=== PATIENT | female | born 1960 | race Caucasian/White ===

== ENCOUNTER 2019-08-23 11:02 | Emergency (ER) | payer OTHER ==
[2019-08-23] MEDS ORDERED: LIDOCAINE 1% W/EPI 1:100,000 MDV 20 ML VIAL ONE (12:16)
--- NOTE | 2019-08-23 12:42 | ER ---
Nurse's Notes [facility] Name: Emerita Tang Age: 59 yrs Sex: Female : 1960 Arrival Date: 08/23/2019 Time: 11:04 Bed 7 Private MD: Diagnosis: Laceration without foreign body of lower leg-left Presentation: 08/22 11:11 Chief complaint: Patient states: laceration to L pickett occurred 15 minutes ago. Pt ss reports she was taking down a metal shed. No active bleeding noted at this time. Pressure dressing placed prior to arrival. Coronavirus screen: Proceed with normal triage. Patient denies a cough. Patient denies shortness of breath or difficulty breathing. Patient denies measured and/or subjective temperature greater than 100.4F prior to today's visit. Patient denies travel on a cruise ship or to a country the [facility] currently lists as an affected area. Patient denies contact with known and/or suspected case of COVID-19. Ebola Screen: Patient denies exposure to infectious person. Patient denies travel to an Ebola-affected area in the 21 days before illness onset. Complicating Factors: There are no complicating factors for this patient. Initial Sepsis Screen: Does the patient meet any 2 criteria? No. Patient's initial sepsis screen is negative. Does the patient have a suspected source of infection? No. Patient's initial sepsis screen is negative. Risk Assessment: Do you want to hurt yourself or someone else? Patient reports no desire to harm self or others. Onset of symptoms was August 23, 2019. 11:11 Method Of Arrival: Ambulatory 11:11 Acuity: SHANNAN 4 ss Historical: - Allergies: 11:15 No Known Allergies; ss - PSHx: 11:15 Hysterectomy; Cholecystectomy; Sinus surgery; Back surgeries; ss - Immunization history:: Adult Immunizations up to date. - Social history:: Smoking status: Patient denies any tobacco usage or history of. Screenin:35 Abuse screen: Denies threats or abuse. Denies injuries from another. Nutritional hb screening: No deficits noted. Tuberculosis screening: No symptoms or risk factors identified. Fall Risk None identified. Vital Signs: 11:11 BP 135 / 88; Pulse 99; Resp 16; Pulse Ox 100% on R/A; Weight 102.06 kg; Height 5 ft. 5 ss in. (165.10 cm); Pain 4/10; 11:11 Body Mass Index 37.44 (102.06 kg, 165.10 cm) ED Course: 11:04 Patient arrived in ED. fj1 11:09 Jarad Jacinto PA is PHCP. cp 11:10 Jarad Juárez MD is Attending Physician. cp 11:14 Triage completed. ss 11:15 Arm band placed on right wrist. ss 11:25 Wound care: to laceration located on lower left pickett was cleaned with soap and water, mt Patient tolerated well. 11:31 Avril Harrison, RN is Primary Nurse. hb 11:35 Patient has correct armband on for positive identification. Bed in low position. Call hb light in reach. Side rails up X 1. Administered Medications: No medications were administered Outcome: 12:41 Discharge ordered by . cp 13:20 Patient left the ED. hb Signatures: Madeline Lewis RN RN Jarad Jacinto PA PA cp Avril Harrison, RN RN Bebe Stevenson mt, Frank fj1
--- NOTE | 2019-08-23 12:42 | EDPHYS ---
Physician Documentation [facility] Name: Emerita Tang Age: 59 yrs Sex: Female : 1960 Arrival Date: 08/23/2019 Time: 11:04 Bed 7 Private MD: ED Physician Jarad Juárez HPI: 08/22 11:20 This 59 yrs old Female presents to ER via Ambulatory with complaints of cp Laceration To Leg. 11:20 The patient has a laceration occurred at home, and there are no complicating factors. cp 11:20 The laceration(s) is(are) located on the anterior aspect of lower left leg. Onset: The cp symptoms/episode began/occurred this morning. Associated signs and symptoms: Pertinent negatives: heavy bleeding, numbness distal to injury, suspected foreign body. Historical: - Allergies: 11:15 No Known Allergies; ss - PSHx: 11:15 Hysterectomy; Cholecystectomy; Sinus surgery; Back surgeries; ss - Immunization history:: Adult Immunizations up to date. - Social history:: Smoking status: Patient denies any tobacco usage or history of. ROS: 11:20 Skin: Positive for laceration(s), of the anterior aspect left lower leg. cp 11:20 Constitutional: Negative for body aches, chills, fever. cp 11:20 Cardiovascular: Negative for chest pain. 11:20 Respiratory: Negative for shortness of breath, wheezing. 11:20 Abdomen/GI: Negative for abdominal pain, nausea, vomiting, and diarrhea. 11:20 Neuro: Negative for numbness, tingling. 11:20 All other systems are negative. Exam: 11:30 Constitutional: The patient appears in no acute distress, alert, awake, well developed, cp well nourished. 11:30 Musculoskeletal/extremity: Exam is negative for bony tenderness, Perfusion: the cp extremity is normally perfused throughout, Sensation intact. Tendon exam: specific tendon testing normal through active and passive range of motion 11:30 Skin: injury, laceration(s), the wound is approximately 5.5 cm(s), of the anterior aspect of left lower leg, that can be described as clean, no foreign body, linear, with mild bleeding. Vital Signs: 11:11 BP 135 / 88; Pulse 99; Resp 16; Pulse Ox 100% on R/A; Weight 102.06 kg; Height 5 ft. 5 ss in. (165.10 cm); Pain 4/10; 11:11 Body Mass Index 37.44 (102.06 kg, 165.10 cm) ss Laceration: 12:38 Wound Repair of 5.5cm ( 2.2in ) subcutaneous laceration to anterior aspect left lower cp leg. Linear shaped.. Distal neuro/vascular/tendon intact. Anesthesia: Wound infiltrated with 6 mls of 1% lidocaine w/ Epi. Wound prep: Moderate cleansing by me, Wound irrigation by me. Skin closed with 7 4-0 Prolene using interrupted sutures and sterile technique. Dressed with Bacitracin, 4x4's. Patient tolerated well. MDM: 11:17 Patient medically screened. jimmie 12:40 Differential diagnosis: superficial laceration, tendon injury, vascular injury. cp 12:40 Data reviewed: vital signs, nurses notes, and as a result, I will discharge patient. cp Counseling: I had a detailed discussion with the patient and/or guardian regarding: the historical points, exam findings, and any diagnostic results supporting the discharge/admit diagnosis, to return to the emergency department if symptoms worsen or persist or if there are any questions or concerns that arise at home. Response to treatment: the patient's symptoms have markedly improved after treatment, and as a result, I will discharge patient. 08/22 11:16 Order name: Gloves, Sterile; Complete Time: 11:25 em1 08/22 11:16 Order name: Setup Suture Tray; Complete Time: 11:25 em1 08/22 11:30 Order name: Wound Care: please clean and irrigate wound; Complete Time: 11:50 cp Administered Medications: No medications were administered Disposition: 12:55 Chart complete. cp 16:23 Co-signature as Attending Physician, Jarad Juárez MD I agree with the assessment and [facility] plan of care. Disposition: 08/23/19 12:41 Discharged to Home. Impression: Laceration without foreign body of lower leg - left. - Condition is Stable. - Discharge Instructions: Laceration Care, Adult. - Medication Reconciliation Form, Thank You Letter, Antibiotic Education, Prescription Opioid Use form. - Follow up: Private Physician; When: 7 - 10 days; Reason: Staple/Suture removal. - Problem is new. - Symptoms have improved. Signatures: Jarad Juárez MD MD cha Martinez, Eric em1 Madeline Lewis, VIJAYA RN ss Jarad Jacinto PA PA cp Avril Harrison, RN RN hb Corrections: (The following items were deleted from the chart) 13:20 12:41 08/23/2019 12:41 Discharged to Home. Impression: Laceration without foreign body hb of lower leg - left. Condition is Stable. Forms are Medication Reconciliation Form, Thank You Letter, Antibiotic Education, Prescription Opioid Use. Follow up: Private Physician; When: 7 - 10 days; Reason: Staple/Suture removal. Problem is new. Symptoms have improved. cp
--- OUTSIDE RECORDS SUMMARY | 2019-08-23 12:57 | XMS REPORT | Clinical Summary ---
:1960 Author Organization [facility] Address [address] [place] [id number] Care Team Providers Name Role Phone Asked, Pcp Primary Care Provider Unavailable Allergies Not on File Medications No known medications Active Problems No known active problems Family History Medical History Relation Name Comments Arthritis Mother Felecia Montalvo COPD Sister Meg Stanford Relation Name Status Comments Mother Felecia Montalvo Sister Meg Stanford Social History Tobacco Use Types Packs/Day Years Used Date Never Smoker Smokeless Tobacco: Never Used Alcohol Use Drinks/Week oz/Week Comments Yes 2 Standard drinks or equivalent Sex Assigned at Date Recorded Not on file Job Start Date Occupation Industry Not on file Not on file Not on file Travel History Travel Start Travel End No recent travel history available. 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
[2019-08-23 13:47] VITALS: BP 135/88; O2SAT 100
== END 2019-08-23 13:20 | disposition home or self-care (01) ==
LOC: ER 11:02
PROC: 0JQP0ZZ Repair Left Lower Leg Subcutaneous Tissue and Fascia, Open Approach (ICD-10-PCS; principal; 2019-08-23)
DX: S81.812A Laceration without foreign body, left lower leg, initial encounter (principal); W26.8XXA Contact with other sharp object(s), not elsewhere classified, initial encounter; Y93.9 Activity, unspecified; Y92.018 Other place in single-family (private) house as the place of occurrence of the external cause
CPT/HCPCS: 99282